=== PATIENT | male | born 1995 | race Caucasian/White ===

== ENCOUNTER 2017-05-25 21:11 | Emergency (ER) | payer BC, OTHER ==
[2017-05-25] MEDS ORDERED: Rocephin 1000 MG INJ IM ONE (21:28)
[2017-05-25] MEDS ORDERED: Rocephin 1000 MG INJ ONE (21:31)
[2017-05-25] MEDS ORDERED: XYLOCAINE 1% HCL 20 ML MDV ONE (21:31)
--- NOTE | 2017-05-25 21:33 | ERPHSYRPT ---
- History of Present Illness Time Seen by Provider: 05/25/17 21:30 Source: patient Physician History: c/o pain and sore throat with fever, no chills, no other symptoms Timing/Duration: gradual onset Associated Symptoms: denies symptoms - Review of Systems Constitutional: Fever Eyes: No Symptoms Ears, Nose, & Throat: Painful Swallowing Respiratory: No Symptoms Cardiac: No Symptoms Abdominal/Gastrointestinal: No Symptoms - Physical Exam General Appearance: no apparent distress Eye Exam: bilateral eye: normal inspection, PERRL, EOMI, abnormal EOM, abnormal pupil, conjunctival hemorrhage, photophobia, vision changes, other Ear Exam: bilateral ear: auricle normal, canal normal, TM normal, bleeding, discharge, erythema, foreign body, swelling, tenderness, TM dull, TM red, TM bulging, TM perforation, other Nasal Exam: normal inspection Throat Exam: moist mucus membranes, pharynx tenderness, tonsillar exudate Neck Exam: normal inspection Cardiovascular/Respiratory Exam: chest non-tender Abdominal Exam: non-tender Neurologic Exam: alert, oriented x 3 - Course Nursing assessment & vital signs reviewed: Yes Ordered Tests: Medication Summary Discontinued Medications Generic Name Dose Route Start Last Admin Trade Name Freq PRN Reason Stop Dose Admin Ceftriaxone Sodium 1,000 mg 05/25/17 21:28 Rocephin 1000 Mg Inj IM 05/25/17 21:29 STAT ONE - Progress Progress: unchanged Counseled pt/family regarding: diagnosis, need for follow-up - Departure Time of Disposition: 21:31 Departure Disposition: Home Clinical Impression: Acute tonsillitis Qualifiers: Pharyngitis/tonsillitis etiology: unspecified etiology Qualified Code(s): J03.90 - Acute tonsillitis, unspecified Condition: Stable Critical Care Time: No Referrals: JUSTINA CHANG [Primary Care Provider] - Instructions: Pharyngitis/Tonsillopharyngitis -- Adult Additional Instructions: UPPER RESPIRATORY INFECTIONS 1. The signs and symptoms of a cold may last up to 10 days. These illnesses are due to viruses which are not treatable with antibiotics. 2. The following suggestions can aid in recovery and to minimize symptoms: A. Increase fluid intake. B. Acetaminophen or Ibuprofen as directed. C. Avoid smoking environments as this will increase the risk of developing pneumonia. D. For children, may use a cool mist vaporizer in the child's room. 3. Contact your Family Physician if you note: A. Persisten fever >103 for more than 3 days B. Breathing difficulty C. Productive cough of yellow/green sputum D. Illness greater than 7 days E. Persistent vomiting F. Stiff neck Please follow the instructions given to you. Please take your medication as prescribed if given. If symptoms recur or get worse, come back to the emergency room if you cannot reach your primary care physician, or call your primary care physician for an appointment. Again if your symptoms get worse, come back to the emergency room. Thanks for visiting emergency room, and let us take care of you. Prescriptions: Cephalexin Mh 500 mg [Keflex 500 mg] 500 mg PO Q6H #40 capsule
[2017-05-25 21:50] VITALS: BP 118/60; PULSE 76; O2SAT 100
== END 2017-05-25 21:50 | disposition home or self-care (01) ==
LOC: ED 21:11
DX: J03.90 Acute tonsillitis, unspecified (principal)
CPT/HCPCS: 96372; 99283; 99284; J0696

== ENCOUNTER 2017-12-19 22:54 | Emergency (ER) | payer BC ==
[2017-12-19 23:19] VITALS: O2SAT 96
[2017-12-19] MEDS ORDERED: Norco 10/325 MG Tablet PO ONE (23:33)
--- NOTE | 2017-12-19 23:33 | ERPHSYRPT ---
- History of Present Illness Time Seen by Provider: 12/19/17 23:20 Source: patient Exam Limitations: clinical condition Patient Subjective Stated Complaint: patient stated that he went to throw a basketball and he heard a pop in his left shoulder and has been in pain since then. This happened at approx 2100 today Triage Nursing Assessment: Pt A&O x3, gait stable, blood pressure 170/109 and running slightly tachy, upper and lower extremities have good pulses, left shoulder painful to movement. Hurt while playing basketball Physician History: PATIENT STATES WHILE PLAYING BASKETBALL, THREW BALL WITH BOTH HANDS OVER HIS HEAD, FELT PAIN SENSATION IN LEFT SHOULDER. DENIES DEFORMITY, SWELLING BUT COMPLAINS OF SEVERE PAIN UPON RANGE OF MOTION WHICH IS LIMITED. Occurred: this evening Method of Injury: sports injury Quality: constant Severity of Pain-Max: moderate Severity of Pain-Current: moderate Extremities Pain Location: shoulder: left Modifying Factors: Improves With: movement Associated Symptoms: none Allergies/Adverse Reactions: No Known Drug Allergies Allergy (Verified 05/25/17 21:37) Home Medications: Sumatriptan Succinate [Imitrex] 25 mg PO UD PRN 12/19/17 [History] Immunizations Up to Date: Yes - Review of Systems Constitutional: No Fever, No Chills Musculoskeletal: Injury, Joint Pain Neurological: No Dizziness, No Focal Weakness, No Sensory Changes - Past Medical History Pertinent Past Medical History: Yes Neurological History: Migraines Other Medical History: migraines - Past Surgical History Past Surgical History: Yes Other Surgical History: left hand and wrist - Social History Smoking Status: Never smoker Exposure to second hand smoke: No Drug Use: none Patient Lives Alone: No - Nursing Vital Signs Nursing Vital Signs: Initial Vital Signs Temperature 98.0 F 12/19/17 23:05 Pulse Rate 98 H 12/19/17 23:05 Blood Pressure 170/109 12/19/17 23:05 O2 Sat by Pulse Oximetry 96 12/19/17 23:05 Pain Scale Pain Intensity 4 - Physical Exam General Appearance: alert Shoulder Exam: limited ROM, pain (TENDERNESS OVER HUMERAL HEAD, HEAD OF BICEPS TENDON, NO CREPITUS OR ECCHYMOSIS, LEFT RADIAL PULSE 2+), soft tissue tenderness DTR - Upper Extremity Exam: bicep (R): 2+, bicep (L): 2+, tricep (R): 2+, tricep (L): 2+ Neuro/Tendon Exam: normal sensation, normal motor functions Mental Status Exam: alert, oriented x 3 Skin Exam: normal color SpO2 Interpretation: normal SpO2: 96 Oxygen Delivery: Room Air - Radiology Exams Left Shoulder X-ray Interpretation: Interpreted by me (NO EVIDENCE OF FRACTURE OR DISLOCATION) Ordered Tests: Active Orders 24 hr Category Date Time Status Sling Application STAT Care 12/19/17 23:29 Active SHOULDER Stat Exams 12/19/17 23:28 Taken Medication Summary Discontinued Medications Generic Name Dose Route Start Last Admin Trade Name Avelina PRN Reason Stop Dose Admin Hydrocodone Bitart/Acetaminophen 1 tab 12/19/17 23:33 12/19/17 23:43 [place] 10/325 Mg Tablet PO 12/19/17 23:34 1 tab STAT ONE Administration Hydrocodone Bitart/Acetaminophen Confirm 12/19/17 23:39 [place] 10/325 Mg Tablet Administered 12/19/17 23:40 Dose 1 tab .ROUTE .STEvodental-MED ONE - Progress Progress Note: 12/20/17 00:06 ADMINISTERED [place] 10/325 ORALLY, AND LEFT ARM SLING Counseled pt/family regarding: diagnosis, rad results - Departure Time of Disposition: 00:20 Departure Disposition: Home Clinical Impression: INTERNAL DERANGEMENT LEFT SHOULDER Condition: Stable Critical Care Time: No Referrals: TAMIKO LINK [Primary Care Provider] - Additional Instructions: WEAR ARM SLING FOR COMFORT. REMOVE SLING EVERY 4 HOURS AND APPLY OVER SHOULDER EVERY 4 HOURS, 30 MINUTES FOR 48 HOURS, MOTRIN 600MG EVERY 6 HOURS FOR MODERATE PAIN. [place] 10/325 EVERY 4 HOURS FOR SEVERE PAIN. CONSULT YOUR PRIMARY CARE PROVIDER FOR FOLLOWUP IN 1 WEEK. Prescriptions: Hydrocodone/APAP 10/325 mg [[place] 10/325 MG Tablet] 1 tab PO Q4H PRN PRN # 10 tablet MDD 4 PRN Reason: Pain Ibuprofen 600 mg PO Q6H PRN PRN #20 tablet PRN Reason: Pain
[2017-12-19] MEDS ORDERED: Norco 10/325 MG Tablet ONE (23:39)
[2017-12-20 00:33] VITALS: BP 136/78; PULSE 87
--- NOTE | 2017-12-20 09:12 | XRAY ---
Indication: Pain playing basketball. Comparison: None 3 views of the left shoulder demonstrates normal bones, articulation, and soft tissues.
== END 2017-12-20 00:39 | disposition home or self-care (01) ==
LOC: ED 22:54
DX: S49.92XA Unspecified injury of left shoulder and upper arm, initial encounter (principal); Y93.67 Activity, basketball
CPT/HCPCS: 73030; 99283; A9270-GY

== ENCOUNTER 2018-11-08 21:01 | Emergency (ER) | payer BC ==
--- NOTE | 2018-11-08 21:37 | ERPHSYRPT ---
- History of Present Illness Time Seen by Provider: 11/08/18 21:31 Source: patient Exam Limitations: no limitations Patient Subjective Stated Complaint: Pt states the left side of his throat and left ear have been hurting for 4-5 days. Pain was much worse this evening than it has been. Triage Nursing Assessment: Pt alert and oriented x3. skin pink warm and dry. afebrile. throat does appear reddened. no drainage noted to left ear Physician History: 22-year-old white male previously healthy arrives with complaint of sore throat and left earache symptoms for 5 days. Patient states he began having left ear pain now is having pain in his throat. He has not had any vomiting has not had any fevers. Past medical history is positive for migraines Social history patient denies tobacco, alcohol, or illicit drug use Timing/Duration: day(s) (5 days) Severity: moderate Modifying Factors: Improves With: nothing Associated Symptoms: other (left ear pain, sore throat), No nausea, No vomiting , No abdominal pain, No shortness of breath, No heartburn, No diaphoresis, No cough, No chills, No chest pain, No fever, No headaches, No loss of appetite, No malaise, No rash, No syncope, No seizure, No weakness Allergies/Adverse Reactions: No Known Drug Allergies Allergy (Verified 07/01/18 20:19) Home Medications: Topiramate 25 mg [Topamax 25 MG] 25 mg PO DAILY 11/08/18 [History] Hx Tetanus, Diphtheria Vaccination/Date Given: Yes Hx Influenza Vaccination/Date Given: No - Review of Systems Constitutional: No Fever, No Chills Eyes: No Symptoms Ears, Nose, & Throat: Ear Pain (Left ear pain), Throat Pain, No Ear Discharge, No Hearing Changes, No Tinnitus, No Nose Pain, No Nose Congestion, No Nose Discharge, No Epistaxis, No Mouth Pain, No Mouth Swelling, No Loose Teeth, No Throat Swelling, No Hoarse, No Painful Swallowing, No Snoring, No Stridor Respiratory: No Cough, No Dyspnea Cardiac: No Chest Pain, No Edema, No Syncope Abdominal/Gastrointestinal: No Abdominal Pain, No Nausea, No Vomiting, No Diarrhea Genitourinary Symptoms: No Dysuria Musculoskeletal: No Back Pain, No Neck Pain Skin: No Rash Neurological: No Dizziness, No Focal Weakness, No Sensory Changes Psychological: No Symptoms Endocrine: No Symptoms All Other Systems: Reviewed and Negative - Past Medical History Pertinent Past Medical History: Yes Neurological History: Migraines Other Medical History: migraines - Past Surgical History Past Surgical History: Yes Other Surgical History: left hand and wrist - Social History Smoking Status: Never smoker Exposure to second hand smoke: No Drug Use: none Patient Lives Alone: No - Nursing Vital Signs Nursing Vital Signs: Initial Vital Signs Temperature 98.1 F 11/08/18 21:07 Pulse Rate 80 11/08/18 21:07 Respiratory Rate 16 11/08/18 21:07 Blood Pressure 153/90 11/08/18 21:07 O2 Sat by Pulse Oximetry 96 11/08/18 21:07 Pain Scale Pain Intensity 9 - Physical Exam General Appearance: mild distress Eye Exam: PERRL/EOMI, eyes nml inspection, other (fundi are unremarkable) Ears, Nose, Throat Exam: moist mucous membranes, TM abnormal (L) (left TM erythematous), pharyngeal erythema, No TMs normal, No pharynx normal, No TM abnormal (R) Neck Exam: normal inspection, non-tender, supple, full range of motion Respiratory Exam: normal breath sounds, lungs clear, No respiratory distress Cardiovascular Exam: regular rate/rhythm, normal heart sounds, normal peripheral pulses Gastrointestinal/Abdomen Exam: soft, normal bowel sounds, No tenderness, No mass Back Exam: normal inspection, normal range of motion, No CVA tenderness, No vertebral tenderness Extremity Exam: normal inspection, normal range of motion, pelvis stable Neurologic Exam: alert, oriented x 3, cooperative, 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 Is not having nausea vomiting no fevers. On physical examination left tympanic membrane is erythematous and retracted throat is erythematous. Will treat with amoxicillin. Patient states he took Motrin at home he does not want any pain medications here. Will discharge. - Departure Time of Disposition: 21:35 Departure Disposition: Home Clinical Impression: Left otitis media Qualifiers: Otitis media type: suppurative Chronicity: acute Recurrence: non-recurrent Spontaneous tympanic membrane rupture: without spontaneous rupture Qualified Code(s): H66.002 - Acute suppurative otitis media without spontaneous rupture of ear drum, left ear Pharyngitis Qualifiers: Pharyngitis/tonsillitis etiology: unspecified etiology Qualified Code(s): J02.9 - Acute pharyngitis, unspecified Condition: Stable Critical Care Time: No Referrals: TAMIKO LINK [Primary Care Provider] - Instructions: Sore Throat, Adult (DC) Additional Instructions: Return home. Plenty of fluids. Amoxicillin as prescribed. Tylenol every 4 hours as needed for pain. Follow-up with your family doctor if symptoms are worse, no better in 48 hours, persist longer than 72 hours. Return for acute distress or for severe symptoms. Prescriptions: Amoxicillin 500 mg PO TID #30 capsule
[2018-11-08] MEDS ORDERED: AMOXIL 500 MG PO ONE (21:39)
[2018-11-08] MEDS ORDERED: AMOXIL 500 MG ONE (21:41)
[2018-11-08 21:50] VITALS: BP 137/80; PULSE 88; O2SAT 98
== END 2018-11-08 21:49 | disposition home or self-care (01) ==
LOC: ED 21:01
DX: H66.92 Otitis media, unspecified, left ear (principal); J02.9 Acute pharyngitis, unspecified; H92.02 Otalgia, left ear
CPT/HCPCS: 99283; A9270-GY

== ENCOUNTER 2019-03-31 18:50 | Emergency (ER) | payer BC ==
--- NOTE | 2019-03-31 19:09 | ERPHSYRPT ---
- History of Present Illness Time Seen by Provider: 03/31/19 19:09 Source: patient, family Exam Limitations: no limitations Physician History: 23 y/o white male presents to ED with recurrent left earache. sx for 3 to 4 days. tylenol and ibuprofen not helping much. no other sx. Timing/Duration: gradual onset, days (3 to 4 days) Severity: moderate ENT Location: ear (L) Prearrival Treatment: over the counter meds Associated Symptoms: ear pain (L), No fever, No chills, No headache, No hearing loss Allergies/Adverse Reactions: No Known Drug Allergies Allergy (Verified 03/31/19 19:16) Hx Tetanus, Diphtheria Vaccination/Date Given: Yes Hx Influenza Vaccination/Date Given: No - Review of Systems Constitutional: No Symptoms Eyes: No Symptoms Ears, Nose, & Throat: Ear Pain (left), No Ear Discharge, No Hearing Changes Respiratory: No Symptoms Cardiac: No Symptoms Abdominal/Gastrointestinal: No Symptoms Genitourinary Symptoms: No Symptoms Musculoskeletal: No Symptoms Skin: No Symptoms Neurological: No Symptoms Psychological: No Symptoms Endocrine: No Symptoms Hematologic/Lymphatic: No Symptoms Immunological/Allergic: No Symptoms All Other Systems: Reviewed and Negative - Past Medical History Pertinent Past Medical History: Yes Neurological History: Migraines ENT History: No Pertinent History Cardiac History: No Pertinent History Respiratory History: No Pertinent History Endocrine Medical History: No Pertinent History Musculoskeletal History: No Pertinent History GI Medical History: No Pertinent History History: No Pertinent History Psycho-Social History: No Pertinent History Male Reproductive Disorders: No Pertinent History Other Medical History: migraines - Past Surgical History Past Surgical History: Yes Neuro Surgical History: No Pertinent History Cardiac: No Pertinent History Respiratory: No Pertinent History Gastrointestinal: No Pertinent History Genitourinary: No Pertinent History Musculoskeletal: No Pertinent History Male Surgical History: No Pertinent History Other Surgical History: left hand and wrist - Social History Smoking Status: Never smoker Exposure to second hand smoke: No Drug Use: none Patient Lives Alone: No - Nursing Vital Signs Nursing Vital Signs: Initial Vital Signs Temperature 99.8 F 03/31/19 19:10 Pulse Rate 98 H 03/31/19 19:10 Respiratory Rate 18 03/31/19 19:10 Blood Pressure 175/100 03/31/19 19:10 O2 Sat by Pulse Oximetry 97 03/31/19 19:10 Pain Scale Pain Intensity 7 - Physical Exam General Appearance: no apparent distress, alert, anxiety Eye Exam: bilateral eye: normal inspection, PERRL, EOMI Ear Exam: right ear: auricle normal, canal normal, TM normal, left ear: erythema , tenderness, TM red Nasal Exam: normal inspection Throat Exam: normal, pharynx normal, moist mucus membranes, No dental tenderness Neck Exam: normal inspection, non-tender, supple, full range of motion, trachea midline Cardiovascular/Respiratory Exam: chest non-tender, normal breath sounds Abdominal Exam: non-tender Neurologic Exam: alert, oriented x 3, cooperative, 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, normal mood/affect, nml cerebellar function, nml station & gait Skin Exam: normal color, warm, dry SpO2 Interpretation: normal O2 Delivery: Room Air Ordered Tests: Medication Summary Generic Name Dose Route Start Last Admin Trade Name Freq PRN Reason Stop Dose Admin Prednisone 20 mg 04/01/19 19:26 Deltasone 20 Mg PO 04/01/19 19:27 STAT ONE Discontinued Medications Generic Name Dose Route Start Last Admin Trade Name Freq PRN Reason Stop Dose Admin Hydrocodone Bitart/Acetaminophen 1 tab 03/31/19 19:26 [place] 10/325 Mg Tablet PO 03/31/19 19:27 STAT ONE Ceftriaxone Sodium 1,000 mg 03/31/19 19:26 Rocephin 1000 Mg Inj IM 03/31/19 19:27 STAT ONE - Progress Progress: unchanged Counseled pt/family regarding: diagnosis, need for follow-up - Departure Departure Disposition: Home Clinical Impression: Left otitis media Condition: Stable Critical Care Time: No Referrals: TAMIKO LINK [Primary Care Provider] - Additional Instructions: take medications as prescribed. follow up with primary doctor for further management Prescriptions: Hydrocodone/APAP 5-325 Tab^^^ [[place] 5-325 Tablet^^^] 1 tab PO Q12H PRN PRN #6 tablet MDD 6 PRN Reason: Pain Azithromycin 250 mg [Zithromax 250 MG TABLET] 250 mg PO ZPACK #6 tablet Prednisone 10 mg [Deltasone 10 mg] 10 mg PO TID #9 tablet
[2019-03-31] MEDS ORDERED: Rocephin 1000 MG INJ IM ONE (19:26)
[2019-03-31] MEDS ORDERED: Norco 10/325 MG Tablet PO ONE (19:26)
[2019-03-31] MEDS ORDERED: Norco 10/325 MG Tablet ONE (19:38)
[2019-03-31] MEDS ORDERED: DELTASONE 20 MG ONE (19:38)
[2019-03-31] MEDS ORDERED: Rocephin 1000 MG INJ ONE (19:39)
[2019-03-31] MEDS ORDERED: XYLOCAINE 1% HCL 20 ML MDV ONE (19:41)
[2019-03-31 20:05] VITALS: BP 143/92; PULSE 78; O2SAT 98
[2019-04-01] MEDS ORDERED: DELTASONE 20 MG PO ONE (19:26)
== END 2019-03-31 20:02 | disposition home or self-care (01) ==
LOC: ED 18:50
DX: H66.92 Otitis media, unspecified, left ear (principal)
CPT/HCPCS: 96372; 99284; J0696; A9270-GY

== ENCOUNTER 2020-04-30 23:45 | Emergency (ER) | payer BC ==
--- NOTE | 2020-05-01 00:23 | ERPHSYRPT ---
- History of Present Illness Time Seen by Provider: 05/01/20 00:18 Source: patient Exam Limitations: no limitations Physician History: pt has had family exposure to positive COvid recently and was sent home from work due to body aches headache, fever 101 and diarrhea and No shortness of breath but does also have left earache without drainage noraml exam without abd tenderness otw and clear lungs - has had dry cough. Timing/Duration: yesterday Cough Quality/Degree: dry cough Possible Cause: no prior episodes Modifying Factors: Improves With: nothing Associated Symptoms: fever, cough, earache, muscle aches, No shortness of breath Allergies/Adverse Reactions: No Known Drug Allergies Allergy (Verified 05/01/20 00:29) Hx Tetanus, Diphtheria Vaccination/Date Given: Yes Hx Influenza Vaccination/Date Given: No Hx Pneumococcal Vaccination/Date Given: No - Review of Systems Constitutional: Fever, Malaise, No Chills Eyes: No Symptoms Ears, Nose, & Throat: Ear Pain Respiratory: Cough, No Dyspnea Cardiac: No Chest Pain, No Edema, No Syncope Abdominal/Gastrointestinal: Nausea, Diarrhea, No Abdominal Pain, No Vomiting Genitourinary Symptoms: No Dysuria Musculoskeletal: Arthralgias, No Back Pain, No Neck Pain Skin: No Symptoms, No Rash Neurological: Headache, No Dizziness, No Focal Weakness, No Sensory Changes Psychological: No Symptoms Endocrine: No Symptoms All Other Systems: Reviewed and Negative - Past Medical History Pertinent Past Medical History: Yes Neurological History: Migraines ENT History: No Pertinent History Cardiac History: No Pertinent History Respiratory History: No Pertinent History Endocrine Medical History: No Pertinent History Musculoskeletal History: No Pertinent History GI Medical History: No Pertinent History History: No Pertinent History Psycho-Social History: No Pertinent History Male Reproductive Disorders: No Pertinent History Other Medical History: migraines - Past Surgical History Past Surgical History: Yes Neuro Surgical History: No Pertinent History Cardiac: No Pertinent History Respiratory: No Pertinent History Gastrointestinal: No Pertinent History Genitourinary: No Pertinent History Musculoskeletal: No Pertinent History Male Surgical History: No Pertinent History Other Surgical History: left hand and wrist - Social History Smoking Status: Never smoker Exposure to second hand smoke: No Drug Use: none Patient Lives Alone: No - Nursing Vital Signs Nursing Vital Signs: Initial Vital Signs Temperature 101.7 F 05/01/20 00:10 Pulse Rate 117 H 05/01/20 00:10 Respiratory Rate 18 05/01/20 00:10 Blood Pressure 137/77 05/01/20 00:10 O2 Sat by Pulse Oximetry 95 05/01/20 00:10 Pain Scale Pain Intensity 8 - Physical Exam General Appearance: no apparent distress, alert Eye Exam: PERRL/EOMI, eyes nml inspection Ears, Nose, Throat Exam: normal ENT inspection, pharynx normal, moist mucous membranes, TM abnormal (L) Neck Exam: normal inspection, non-tender, supple, full range of motion Respiratory Exam: normal breath sounds, lungs clear, No respiratory distress Cardiovascular Exam: regular rate/rhythm, normal heart sounds Gastrointestinal/Abdomen Exam: soft, No tenderness, No distention, No mass, No guarding, No pulsatile mass, No rebound Rectal Exam: deferred Back Exam: normal inspection, No CVA tenderness, No vertebral tenderness Extremity Exam: normal inspection, normal range of motion Neurologic Exam: alert, oriented x 3, cooperative, normal mood/affect, sensation nml, No motor deficits Skin Exam: normal color, warm, dry, No rash Lymphatic Exam: No adenopathy SpO2 Interpretation: normal SpO2: 95 O2 Delivery: Room Air - Course Nursing assessment & vital signs reviewed: Yes - Progress Air Movement: good Blood Culture(s) Obtained: No Antibiotics given: Yes Counseled pt/family regarding: lab results, diagnosis, need for follow-up - Departure Departure Disposition: Home Clinical Impression: Person under investigation for COVID-19, Left OM Condition: Good Critical Care Time: No Referrals: TAMIKO LINK [Primary Care Provider] - Instructions: Fever, Adult (DC), Serous Otitis Media (DC), Coronavirus Disease 2019 (COVID-19) (DC) Additional Instructions: result will be in 1-3 days - quarantine until result known . Contact your PCP - for joseph mclain if negative result , and for continued followup if positive. return meantime if any shortness of breath or other concerns. drink plenty of fluids. Prescriptions: Amox Tr/Potass Clav. 875 mg [Augmentin 875-125 Tablet] 875 mg PO BID #20 tablet
[2020-05-01 01:18] VITALS: BP 118/60; PULSE 115; O2SAT 94
== END 2020-05-01 01:18 | disposition home or self-care (01) ==
LOC: ED 23:45
DX: R50.9 Fever, unspecified (principal); R55 Syncope and collapse; R19.7 Diarrhea, unspecified; H66.92 Otitis media, unspecified, left ear
CPT/HCPCS: 99283; U0003

== ENCOUNTER 2023-06-26 16:41 | Emergency (ER) | payer BC ==
[2023-06-26 16:48] VITALS: TEMP 99.8; O2SAT 96
--- NOTE | 2023-06-26 16:53 | ERPHSYRPT ---
- History of Present Illness Source: patient Exam Limitations: no limitations Patient Subjective Stated Complaint: Pt states "I went to [facility] on saturday and was tested for strep and covid and I am positive for strep but today I just feel like I cannot catch my breath." Triage Nursing Assessment: Pt presented alert and oriented X 3, skin pwd. Pt ambulates with an upright steady gait, able to speak in clear full sentences. pt hot to the touch. pt has intermittant cough. Timing/Duration: today Activities at Onset: none Severity of Dyspnea-Max: mild Severity of Dyspnea-Current: mild Possible Cause: no prior episodes Modifying Factors: Improves With: coughing Associated Symptoms: cough, fever, No chest pain/discomfort Hx Tetanus, Diphtheria Vaccination/Date Given: Yes Hx Influenza Vaccination/Date Given: No Hx Pneumococcal Vaccination/Date Given: No Immunizations Up to Date: No <DANETTE MURCIA - Last Filed: 06/26/23 19:07> <JAVIER CORNELIUS - Last Filed: 06/26/23 19:39> - History of Present Illness Time Seen by Provider: 06/26/23 16:52 Physician History: This is a 27-year-old white male patient who was diagnosed yesterday with positive strep test. His COVID test was negative. His symptoms of cough, shortness of breath headache and body aches began 2 days ago. He went into [facility] yesterday and was diagnosed with the strep pharyngitis and was given a prescription for penicillin. Today, he does not feel any better. In fact he feels worse. The sore throat is improving but his cough and shortness of breath is slightly worse. He does not have chest pain. He has no abdominal pain. He has had nausea but no vomiting. He denies diarrhea. (DANETTE MURCIA) Allergies/Adverse Reactions: No Known Drug Allergies Allergy (Verified 05/01/20 00:29) Home Medications: Penicillin V Potassium 500 mg PO BID 06/26/23 [History] Topiramate [Topiramate ER] 50 mg PO DAILY 06/26/23 [History] Travel Risk - International Travel Have you traveled outside of the country in past 3 weeks: No - Coronavirus Screening Are you exhibiting any of the following symptoms?: Yes Symptoms: Fever, Cough: New Onset, Shortness of Breath, Headaches/Body Aches/Fatigue Close contact with a COVID-19 positive Pt in past 14-21 Days: No - Vaccine Status Have you recieved a Covid-19 vaccination: No <DANETTE MURCIA - Last Filed: 06/26/23 19:07> - Review of Systems Constitutional: No Symptoms Eyes: No Symptoms Ears, Nose, & Throat: No Symptoms Respiratory: Cough, Dyspnea Cardiac: No Symptoms Abdominal/Gastrointestinal: No Symptoms Genitourinary Symptoms: No Symptoms Musculoskeletal: No Symptoms Skin: No Symptoms Neurological: No Symptoms Psychological: No Symptoms Endocrine: No Symptoms Hematologic/Lymphatic: No Symptoms Immunological/Allergic: No Symptoms All Other Systems: Reviewed and Negative <DANETTE MURCIA - Last Filed: 06/26/23 19:07> - Past Medical History Pertinent Past Medical History: Yes Neurological History: Migraines ENT History: No Pertinent History Cardiac History: No Pertinent History Respiratory History: No Pertinent History Endocrine Medical History: No Pertinent History Musculoskeletal History: No Pertinent History GI Medical History: No Pertinent History History: No Pertinent History Psycho-Social History: No Pertinent History Male Reproductive Disorders: No Pertinent History Other Medical History: migraines - Past Surgical History Past Surgical History: Yes Neuro Surgical History: No Pertinent History Cardiac: No Pertinent History Respiratory: No Pertinent History Gastrointestinal: No Pertinent History Genitourinary: No Pertinent History Musculoskeletal: No Pertinent History Male Surgical History: No Pertinent History Other Surgical History: left hand and wrist - Social History Smoking Status: Never smoker Exposure to second hand smoke: No Drug Use: none Patient Lives Alone: No <DANETTE MURCIA - Last Filed: 06/26/23 19:07> - Physical Exam General Appearance: no apparent distress, alert, anxiety Eye Exam: PERRL/EOMI, eyes nml inspection Ears, Nose, Throat Exam: hearing grossly normal, normal ENT inspection, normal pharynx Neck Exam: normal inspection, non-tender, supple, full range of motion Respiratory Exam: normal breath sounds, lungs clear, airway intact, No chest tenderness, No respiratory distress Cardiovascular/Chest Exam: tachycardia Abdominal/Gastrointestinal Exam: soft, normal bowel sounds, No tenderness Rectal Exam: not done Extremity Exam: non-tender, normal range of motion, normal inspection, normal capillary refill, no calf tenderness, no pedal edema, pelvis stable Neurologic Exam: alert, oriented x 3, cooperative, title i coordinator II-XII nml as tested, normal mood/affect, nml cerebellar function, nml station & gait, sensation nml Skin Exam: normal color, warm, dry Lymphatic Exam: No adenopathy SpO2 Interpretation: normal SpO2: 96 O2 Delivery: Room Air <DANETTE MURCIA - Last Filed: 06/26/23 19:07> - Nursing Vital Signs Nursing Vital Signs: Initial Vital Signs Temperature 99.8 F 06/26/23 16:42 Pulse Rate 114 H 06/26/23 16:42 Respiratory Rate 24 06/26/23 16:42 Blood Pressure 145/87 06/26/23 16:42 O2 Sat by Pulse Oximetry 96 06/26/23 16:42 Pain Scale Pain Intensity 2 - Course Nursing assessment & vital signs reviewed: Yes <DANETTE MURCIA - Last Filed: 06/26/23 19:07> - Radiology Exams Chest X-ray Interpretation: Teleradiologist Report (Pneumonia) <JAVIER CORNELIUS - Last Filed: 06/26/23 19:39> Ordered Tests: Active Orders 24 hr Category Date Time Status Environmental Services Coordinator STAT Care 06/26/23 17:29 Active EKG-ER Only STAT Care 06/26/23 17:28 Active IV Insertion STAT Care 06/26/23 17:28 Active CHEST 1 VIEW (PORTABLE) Stat Exams 06/26/23 17:29 Completed BLOOD CULTURE Stat Lab 06/26/23 17:40 Received CBC W DIFF Stat Lab 06/26/23 17:25 Completed CMP Stat Lab 06/26/23 17:25 Completed D-DIMER QUANTITATIVE Stat Lab 06/26/23 17:25 Completed MONO SCREEN Stat Lab 06/26/23 17:50 Completed NT PRO BNPII Stat Lab 06/26/23 17:25 Completed TROPONIN Q4H Lab 06/26/23 17:25 Completed TROPONIN Q4H Lab 06/26/23 21:30 Ordered TROPONIN Q4H Lab 06/27/23 01:30 Ordered UA W/RFX UR CULTURE Stat Lab 06/26/23 17:50 Completed Medication Summary Generic Name Dose Route Start Last Admin Trade Name Freq PRN Reason Stop Dose Admin Sodium Chloride 1,000 mls @ 100 mls/hr 06/26/23 17:30 06/26/23 17:47 Sodium Chloride 0.9% 1000 Ml IV 07/26/23 17:29 100 mls/hr .Q10H ALESHA Administration Discontinued Medications Generic Name Dose Route Start Last Admin Trade Name Avelina PRN Reason Stop Dose Admin Hydrocodone Bitart/Acetaminophen 10 ml 06/26/23 18:17 06/26/23 18:58 Hydrocodone/Acetaminophen 5 Ml Udcup PO 06/26/23 18:18 10 ml STAT STA Administration Hydrocodone Bitart/Acetaminophen Confirm 06/26/23 18:57 Hydrocodone/Acetaminophen 5 Ml Udcup Administered 06/26/23 18:58 Dose 10 ml .ROUTE .STK-MED ONE Methylprednisolone Sodium 0 mg 06/26/23 18:17 06/26/23 18:59 Succinate 125 mg/ Sterile IV 06/26/23 18:18 125 mg Water 2 ml STAT ONE Administration Ceftriaxone Sodium/Dextrose 1 g in 50 mls @ 100 mls/hr 06/26/23 18:47 06/26/23 19:30 Rocephin 1 Gm-D5w 50 Ml Bag IV 06/26/23 19:16 Infused STAT STA Infusion Ceftriaxone Sodium/Dextrose Confirm 06/26/23 19:00 Rocephin 1 Gm-D5w 50 Ml Bag Administered 06/26/23 19:01 Dose 1 g in 50 mls @ ud IV .STK-MED ONE Methylprednisolone Sodium Succinate Confirm 06/26/23 18:57 Methylprednis Sod Succ 125 Mg/2 Ml Vial Administered 06/26/23 18:58 Dose 125 mg .ROUTE .STK-MED ONE Ondansetron HCl 4 mg 06/26/23 18:17 06/26/23 18:59 Ondansetron Hcl 4 Mg/2 Ml Vial IV 06/26/23 18:18 4 mg STAT ONE Administration Ondansetron HCl Confirm 06/26/23 18:57 Ondansetron Hcl 4 Mg/2 Ml Vial Administered 06/26/23 18:58 Dose 4 mg .ROUTE .STK-MED ONE Sterile Water Confirm 06/26/23 18:57 Water For Injection,Sterile 10 Ml Vial Administered 06/26/23 18:58 Dose 10 ml IJ .STK-MED ONE Lab/Rad Data: Laboratory Result Diagrams 06/26/23 17:25 06/26/23 17:25 Laboratory Results 06/26/23 06/26/23 06/26/23 Range/Units 17:50 17:50 17:50 WBC (4.0-10.5) x10^3/uL RBC (4.1-5.6) x10^6/uL Hgb (12.5-18.0) g/dL Hct (42-50) % MCV (78-100) fL MCH (26-32) pg MCHC (32-36) g/dL RDW (11.5-14.0) % Plt Count (150-450) x10^3/uL MPV (7.5-11.0) fL Gran % (36.0-66.0) % Immature Gran % (Auto) (0.00-0.4) % Nucleat RBC Rel Count (0.00-0.1) % Eos # (Auto) (0-0.5) x10^3/uL Immature Gran # (Auto) (0.00-0.03) x10^3u/L Absolute Lymphs (auto) (1.0-4.6) x10^3/uL Absolute Monos (auto) (0.0-1.3) x10^3/uL Absolute Nucleated RBC (0.00-0.01) x10^3u/L Lymphocytes % (24.0-44.0) % Monocytes % (0.0-12.0) % Eosinophils % (0.00-5.0) % Basophils % (0.0-0.4) % Absolute Granulocytes (1.4-6.9) x10^3/uL Basophils # (0-0.4) x10^3/uL D-Dimer (0.0-0.50) mg/L Sodium (137-145) mmol/L Potassium (3.5-5.1) mmol/L Chloride (98-107) mmol/L Carbon Dioxide (22-30) mmol/L Anion Gap (5-15) MEQ/L BUN (9-20) mg/dL Creatinine (0.66-1.25) mg/dL Estimated GFR ML/MIN Glucose (74-106) mg/dL Calcium (8.4-10.2) mg/dL Total Bilirubin (0.2-1.3) mg/dL AST (17-59) U/L ALT (0-50) U/L Alkaline Phosphatase (38-126) U/L Troponin I (0.000-0.034) ng/mL NT-Pro-B Natriuret Pep (<300) pg/mL Serum Total Protein (6.3-8.2) g/dL Albumin (3.5-5.0) g/dL Urine Color Yellow (Yellow) Urine Appearance Clear (Clear) Urine pH 7.0 (4.6-8.0) Ur Specific [place] <=1.005 (1.005-1.030) Urine Protein Trace A (Negative) Urine Glucose (UA) Negative (Negative) mg/dL Urine Ketones Negative (Negative) Urine Blood Negative (Negative) Urine Nitrite Negative (Negative) Urine Bilirubin Negative (Negative) Urine Urobilinogen 1.0 A (0.2) mg/dL Ur Leukocyte Esterase Negative (Negative) U Hyaline Cast (Auto) NONE SEEN (0-2) /LPF Urine Microscopic RBC 0-2 (0-5) /HPF Urine Microscopic WBC 0-2 (0-5) /HPF Ur Epithelial Cells None Seen (None Seen) /HPF Urine Bacteria None Seen (None Seen) /HPF Urine Culture Reflexed NO (NO) Monoscreen NEGATIVE (NEGATIVE) Influenza Type A Ag NEGATIVE (NEGATIVE) Influenza Type B Ag NEGATIVE (NEGATIVE) RSV (PCR) NEGATIVE (NEGATIVE) SARS-CoV-2 (PCR) NEGATIVE (NEGATIVE) 06/26/23 06/26/23 06/26/23 Range/Units 17:25 17:25 17:25 WBC (4.0-10.5) x10^3/uL RBC (4.1-5.6) x10^6/uL Hgb (12.5-18.0) g/dL Hct (42-50) % MCV (78-100) fL MCH (26-32) pg MCHC (32-36) g/dL RDW (11.5-14.0) % Plt Count (150-450) x10^3/uL MPV (7.5-11.0) fL Gran % (36.0-66.0) % Immature Gran % (Auto) (0.00-0.4) % Nucleat RBC Rel Count (0.00-0.1) % Eos # (Auto) (0-0.5) x10^3/uL Immature Gran # (Auto) (0.00-0.03) x10^3u/L Absolute Lymphs (auto) (1.0-4.6) x10^3/uL Absolute Monos (auto) (0.0-1.3) x10^3/uL Absolute Nucleated RBC (0.00-0.01) x10^3u/L Lymphocytes % (24.0-44.0) % Monocytes % (0.0-12.0) % Eosinophils % (0.00-5.0) % Basophils % (0.0-0.4) % Absolute Granulocytes (1.4-6.9) x10^3/uL Basophils # (0-0.4) x10^3/uL D-Dimer 0.37 (0.0-0.50) mg/L Sodium 136 L (137-145) mmol/L Potassium 3.4 L (3.5-5.1) mmol/L Chloride 100 (98-107) mmol/L Carbon Dioxide 22 (22-30) mmol/L Anion Gap 16.4 H (5-15) MEQ/L BUN 9 (9-20) mg/dL Creatinine 1.02 (0.66-1.25) mg/dL Estimated GFR > 60.0 ML/MIN Glucose 154 H (74-106) mg/dL Calcium 8.5 (8.4-10.2) mg/dL Total Bilirubin 0.60 (0.2-1.3) mg/dL AST 18 (17-59) U/L ALT 23 (0-50) U/L Alkaline Phosphatase 71 (38-126) U/L Troponin I < 0.012 (0.000-0.034) ng/mL NT-Pro-B Natriuret Pep 32.6 (<300) pg/mL Serum Total Protein 7.2 (6.3-8.2) g/dL Albumin 4.1 (3.5-5.0) g/dL Urine Color (Yellow) Urine Appearance (Clear) Urine pH (4.6-8.0) Ur Specific [place] (1.005-1.030) Urine Protein (Negative) Urine Glucose (UA) (Negative) mg/dL Urine Ketones (Negative) Urine Blood (Negative) Urine Nitrite (Negative) Urine Bilirubin (Negative) Urine Urobilinogen (0.2) mg/dL Ur Leukocyte Esterase (Negative) U Hyaline Cast (Auto) (0-2) /LPF Urine Microscopic RBC (0-5) /HPF Urine Microscopic WBC (0-5) /HPF Ur Epithelial Cells (None Seen) /HPF Urine Bacteria (None Seen) /HPF Urine Culture Reflexed (NO) Monoscreen (NEGATIVE) Influenza Type A Ag (NEGATIVE) Influenza Type B Ag (NEGATIVE) RSV (PCR) (NEGATIVE) SARS-CoV-2 (PCR) (NEGATIVE) 06/26/23 Range/Units 17:25 WBC 12.3 H (4.0-10.5) x10^3/uL RBC 4.56 (4.1-5.6) x10^6/uL Hgb 13.4 (12.5-18.0) g/dL Hct 39.2 L (42-50) % MCV 86.0 (78-100) fL MCH 29.4 (26-32) pg MCHC 34.2 (32-36) g/dL RDW 12.4 (11.5-14.0) % Plt Count 214 (150-450) x10^3/uL MPV 9.9 (7.5-11.0) fL Gran % 79.4 H (36.0-66.0) % Immature Gran % (Auto) 0.7 H (0.00-0.4) % Nucleat RBC Rel Count 0.0 (0.00-0.1) % Eos # (Auto) 0.13 (0-0.5) x10^3/uL Immature Gran # (Auto) 0.08 H (0.00-0.03) x10^3u/L Absolute Lymphs (auto) 1.27 (1.0-4.6) x10^3/uL Absolute Monos (auto) 1.03 (0.0-1.3) x10^3/uL Absolute Nucleated RBC 0.00 (0.00-0.01) x10^3u/L Lymphocytes % 10.3 L (24.0-44.0) % Monocytes % 8.4 (0.0-12.0) % Eosinophils % 1.1 (0.00-5.0) % Basophils % 0.1 (0.0-0.4) % Absolute Granulocytes 9.78 H (1.4-6.9) x10^3/uL Basophils # 0.01 (0-0.4) x10^3/uL D-Dimer (0.0-0.50) mg/L Sodium (137-145) mmol/L Potassium (3.5-5.1) mmol/L Chloride (98-107) mmol/L Carbon Dioxide (22-30) mmol/L Anion Gap (5-15) MEQ/L BUN (9-20) mg/dL Creatinine (0.66-1.25) mg/dL Estimated GFR ML/MIN Glucose (74-106) mg/dL Calcium (8.4-10.2) mg/dL Total Bilirubin (0.2-1.3) mg/dL AST (17-59) U/L ALT (0-50) U/L Alkaline Phosphatase (38-126) U/L Troponin I (0.000-0.034) ng/mL NT-Pro-B Natriuret Pep (<300) pg/mL Serum Total Protein (6.3-8.2) g/dL Albumin (3.5-5.0) g/dL Urine Color (Yellow) Urine Appearance (Clear) Urine pH (4.6-8.0) Ur Specific [place] (1.005-1.030) Urine Protein (Negative) Urine Glucose (UA) (Negative) mg/dL Urine Ketones (Negative) Urine Blood (Negative) Urine Nitrite (Negative) Urine Bilirubin (Negative) Urine Urobilinogen (0.2) mg/dL Ur Leukocyte Esterase (Negative) U Hyaline Cast (Auto) (0-2) /LPF Urine Microscopic RBC (0-5) /HPF Urine Microscopic WBC (0-5) /HPF Ur Epithelial Cells (None Seen) /HPF Urine Bacteria (None Seen) /HPF Urine Culture Reflexed (NO) Monoscreen (NEGATIVE) Influenza Type A Ag (NEGATIVE) Influenza Type B Ag (NEGATIVE) RSV (PCR) (NEGATIVE) SARS-CoV-2 (PCR) (NEGATIVE) - Progress Progress: improved, re-examined Air Movement: good Blood Culture(s) Obtained: Yes Antibiotics given: Yes Counseled pt/family regarding: lab results, diagnosis, need for follow-up, rad results <DANETTE MURCIA - Last Filed: 06/26/23 19:07> <JAVIER CORNELIUS Last Filed: 06/26/23 19:39> - Progress Progress Note: 06/26/23 18:54 Chest x-ray interpreted by me possible bilateral perihilar infiltrate 06/26/23 18:59 This patient's medical issue is 1 of moderate complexity. Level complexity in the work-up performed is based on review of the patient's past medical history, review the patient's medication list, review of patient's drug allergy list, history present is some physical findings on examination. The work-up in this patient includes placement of intravenous line, infusion of normal saline solution, CBC, CMP, COVID and viral studies, urinalysis, chest x-ray. I also provide the patient with Solu-Medrol 125 mg intravenously and hydrocodone elixir 10 mL. The chest x-ray was interpreted to me and there is a possible bilateral perihilar infiltrate present. I sent it off to be read by the nighttime radiologist. I am transferring care to Dr. Javier Cornelius at shift change. He will follow-up on the final study that is pending and discharge the patient to home. (DANETTE MURCIA) Patient endorsed to Dr. Cornelius at approximately [address] Cornelius advised to follow- up on pending chest x-ray report. Plan of care established by Dr. Murcia at time of patient transfer was to discharge patient unless chest x-ray proved otherwise. Chest x-ray confirms pneumonia as suspected. Patient will be discharged home. He is to continue the penicillin based antibiotic as well as the medications prescribed to him per Dr. Murcia. Plan of care discussed with patient. He agrees to follow-up with his primary care doctor within 48 hours for reevaluation. Vital stable. Patient voices no other complaints or concerns at this time. Portions of this note were created with voice recognition technology. There may be grammatical, spelling, punctuation or sound alike errors 06/26/23 19:38 (JAVIER CORNELIUS) Medical Desision Making - Independent Historian Additional History obtained from: Spouse - Diagnostic Testing Diagnostic test were ordered, analyzed, and reviewed by me: Yes Radiological Interpretation: Interpreted by me - Risk of complications The pt has a mod risk of morbidity or mortality based on: Need for prescription drug management <DANETTE MURCIA - Last Filed: 06/26/23 19:07> - Departure Departure Disposition: Home Critical Care Time: No <DANETTE MURCIA JocyShahzad - Last Filed: 06/26/23 19:07> <JAVIER CORNELIUS - Last Filed: 06/26/23 19:39> - Departure Clinical Impression: Bilateral pulmonary infiltrates on chest x-ray, Pneumonia Condition: Stable Referrals: ELI PEREZ MD [Primary Care Provider] - Follow up/PCP as directed Additional Instructions: Drink plenty of fluids. Take your medication as prescribed. Continue penicillin as prescribed. Take the Z-Michi, prednisone and hydrocodone elixir as prescribed. Prescriptions: Hydrocodone/Acetaminophen [Hydrocodone-Acetamn 7.5-325/15] 10 ml PO Q8H PRN PRN #120 ml MDD 30 ml PRN Reason: Cough Prednisone 10 mg [Deltasone 10 mg] 10 mg PO TID #12 tablet Azithromycin 250 mg [Zithromax 250 MG TABLET] 250 mg PO ZPACK #6 tablet
[2023-06-26] MEDS ORDERED: Sodium Chloride 0.9% 1000 ML 1,000 ML IV SCH (17:30)
[2023-06-26 17:45] LABS: Absolute Neutrophil Ct (ANC) 9.78 x10^3/uL (1.4-6.9); BASOPHIL % 0.1 % (0.0-0.4); Basophil (Absolute #) 0.01 x10^3/uL (0-0.4); Eosinophil % 1.1 % (0.00-5.0); Eosinophil (Absolute #) 0.13 x10^3/uL (0-0.5); Hematocrit 39.2 % (42-50); Hemoglobin 13.4 g/dL (12.5-18.0); IMMATURE GRAN # 0.08 x10^3u/L (0.00-0.03); IMMATURE GRAN % 0.7 % (0.00-0.4); Lymphocyte (Absolute #) 1.27 x10^3/uL (1.0-4.6); Lymphocytes % 10.3 % (24.0-44.0); Mean Corpuscular Hemoglobin 29.4 pg (26-32); Mean Corpuscular Hgb Concent. 34.2 g/dL (32-36); Mean Platelet Volume 9.9 fL (7.5-11.0); Monocyte (Absolute #) 1.03 x10^3/uL (0.0-1.3); Monocytes % 8.4 % (0.0-12.0); Neutrophil % 79.4 % (36.0-66.0); Platelet Count 214 x10^3/uL (150-450); Red Blood Count 4.56 x10^6/uL (4.1-5.6); Red Cell Distribution Width 12.4 % (11.5-14.0); White Blood Count 12.3 x10^3/uL (4.0-10.5)
[2023-06-26] MEDS ORDERED: Sodium Chloride 0.9% 1000 ML 1,000 ML ONE (17:47)
[2023-06-26 17:53] LABS: ALBUMIN 4.1 g/dL (3.5-5.0); ALKALINE PHOSPHATASE 71 U/L (38-126); ANION GAP 16.4 MEQ/L (5-15); BLOOD UREA NITROGEN 9 mg/dL (9-20); CHLORIDE 100 mmol/L (98-107); Calcium 8.5 mg/dL (8.4-10.2); Carbon Dioxide 22 mmol/L (22-30); Creatinine 1 1.02 mg/dL (0.66-1.25); EST GLOMERULAR FILTRATION RATE > 60.0 ML/MIN; Glucose 154 mg/dL (74-106); Potassium 3.4 mmol/L (3.5-5.1); SGOT/AST 18 U/L (17-59); SGPT/ALT 23 U/L (0-50); SODIUM 136 mmol/L (137-145); Total Protein 7.2 g/dL (6.3-8.2)
[2023-06-26 18:04] LABS: NT PRO BNPII 32.6 pg/mL (<300); TROPONIN < 0.012 ng/mL (0.000-0.034)
[2023-06-26 18:12] LABS: ADD URINE CULTURE? NO (NO); Appearance Clear (Clear); Bacteria None Seen /HPF (None Seen); Bilirubin Negative (Negative); Blood Negative (Negative); Epithelial Cells None Seen /HPF (None Seen); Glucose, Urine Negative (Negative); Hyaline Casts NONE SEEN /LPF (0-2); Ketones Negative (Negative); Leukocyte Esterase Negative (Negative); Nitrite Negative (Negative); Protein,Urine Dip Trace (Negative); RBC 0-2 /HPF (0-5); Specific Gravity <=1.005 (1.005-1.030); WBC 0-2 /HPF (0-5)
[2023-06-26] MEDS ORDERED: solu-MEDROL 125 MG, Sterile H2O 10 ml 2 ML IV ONE ×2 (18:17)
[2023-06-26] MEDS ORDERED: HYDROCODONE-ACETAMIN 2.5-108/5 ML SOLUTION PO STA (18:17)
[2023-06-26] MEDS ORDERED: Zofran 4 MG/2 ML VIAL IV ONE (18:17)
[2023-06-26 18:44] LABS: INFLUENZA A NEGATIVE (NEGATIVE); INFLUENZA B NEGATIVE (NEGATIVE); RESPIRATORY SYNCTIAL VIRUS NEGATIVE (NEGATIVE); SARS-CoV-2 Xpert Express NEGATIVE (NEGATIVE)
[2023-06-26] MEDS ORDERED: ROCEPHIN 1 Gm-D5w 50 ml Bag** 1 G/50 ML IVPB IV STA (18:47)
[2023-06-26] MEDS ORDERED: Sterile H2O 10 ml IJ ONE (18:57)
[2023-06-26] MEDS ORDERED: Zofran 4 MG/2 ML VIAL ONE (18:57)
[2023-06-26] MEDS ORDERED: solu-MEDROL ONE (18:57)
[2023-06-26] MEDS ORDERED: HYDROCODONE-ACETAMIN 2.5-108/5 ML SOLUTION ONE (18:57)
[2023-06-26] MEDS ORDERED: ROCEPHIN 1 Gm-D5w 50 ml Bag** 1 G/50 ML IVPB IV ONE (19:00)
[2023-06-26 19:15] VITALS: BP 112/46; PULSE 102; RESP 18
--- NOTE | 2023-06-26 19:35 | XRAY ---
CLINICAL HISTORY:Shortness of breath COMPARISON:None. TECHNIQUE:X-ray of the chest, AP view. FINDINGS: Haziness and ground glass opacification are seen in the bilateral perihilar regions. Normal configuration of the mediastinum. The cardiac size is normal. The bony thorax is unremarkable. The costophrenic and cardiophrenic angles are clear. IMPRESSION: Haziness and ground glass opacification in the bilateral perihilar regions. Consider pneumonia. Concurrent pulmonary congestion is not ruled out. Clinical correlation is suggested. Electronically Signed by: Paul Choe MD. (06/26/2023 18:33:08 FOOD MANAGEMENT AIDE)
== END 2023-06-26 19:57 | disposition home or self-care (01) ==
LOC: ED 16:41
DX: J18.9 Pneumonia, unspecified organism (principal); R05.1 Acute cough; R06.02 Shortness of breath; R51.9 Headache, unspecified; M79.10 Myalgia, unspecified site; Z79.52 Long term (current) use of systemic steroids; Z79.891 Long term (current) use of opiate analgesic; Z79.899 Other long term (current) drug therapy; Z28.310 Unvaccinated for COVID-19
CPT/HCPCS: 0241U; 36000; 36415; 71045; 80053; 81001; 83880; 84484; 85025; 85379; 86308; 87040; 93005; 93041; 96374; 96375; 99284; J0696; J2405; J2930; A9270-GY